=== PATIENT | female | born 1965 | race African-American/Black ===

== ENCOUNTER 2016-06-27 18:12 | Emergency (ER) | payer BC, OTHER ==
[~2016-06-27] VITALS: Ht 152.4 cm; Wt 90.5 kg
[2016-06-27 18:14] VITALS: BP 157/84; PULSE 105; RESP 20; TEMP 98.1; O2SAT 98
[2016-06-27] MEDS ORDERED: COLC1TAB7 PO (18:42)
[2016-06-27] MEDS ORDERED: INDO25CA PO (18:42)
--- NOTE | 2016-06-27 18:43 | PD ---
HPI Chief Complaint: Injury Time Seen by Provider: 18:36 Travel History International Travel<30 days: No Contact w/Intl Traveler<30days: No Traveled to known affect area: No History of Present Illness HPI Patient is a 51-year-old female presenting to emergency for evaluation of right ankle swelling. Patient denies any injury or trauma. She states it happened fairly abruptly on Sunday while she was at work. She states it feels warm to the touch. She denies any fevers, chills, nausea, vomiting, chest pain, shortness of breath. She reports pain as sore and a 4-5 out of 10. PFSH Past Medical History Diminished Hearing: No GERD: Yes Hypertension: Yes Tetanus Vaccination: < 5 Years ?: Not Past Surgical History Surgical History: No Previous Surgery Social History Alcohol Use: No Tobacco Use: No (QUIT 2012) Substance Use: No Allergies-Medications (Allergen,Severity, Reaction): Coded Allergies: No Known Allergies (Verified , 06/27/16) Reported Meds & Prescriptions Reported Meds & Active Scripts Active No Active Prescriptions or Reported Medications Review of Systems Except as stated in HPI: all other systems reviewed are Neg Musculoskeletal: Positive: Myalgias, Edema Skin: Positive Change in Pigmentation Physical Exam Narrative GENERAL: Well-nourished, well-developed patient. SKIN: Warm and dry. HEAD: Normocephalic. EYES: No scleral icterus. No injection or drainage. NECK: Supple, trachea midline. No JVD or lymphadenopathy. CARDIOVASCULAR: Regular rate and rhythm without murmurs, gallops, or rubs. RESPIRATORY: Breath sounds equal bilaterally. No accessory muscle use. GASTROINTESTINAL: Abdomen soft, non-tender, nondistended. MUSCULOSKELETAL: No cyanosis, mild erythema and edema to lateral aspect of right ankle, mildly tender to palpation. Full range of motion in right ankle and toes. Positive pedal pulses, brisk less than 3 second capillary refill. BACK: Nontender without obvious deformity. No CVA tenderness. Data Data Last Documented VS Vital Signs Date Time Temp Pulse Resp B/P Pulse Ox O2 Delivery O2 Flow Rate FiO2 06/27/16 18:14 98.1 105 20 157/84 98 Room Air MDM Medical Decision Making Medical Screen Exam Complete: Yes Emergency Medical Condition: Yes Interpretation(s) Vital Signs Date Time Temp Pulse Resp B/P Pulse Ox O2 Delivery O2 Flow Rate FiO2 06/27/16 18:14 98.1 105 20 157/84 98 Room Air Differential Diagnosis Fracture versus sprain versus strain versus cellulitis versus gout versus other Narrative Course Patient is a 51-year-old female presenting to emergency department for evaluation of right ankle pain and swelling that started Sunday spontaneously without any injury or trauma. Physical examination appears most consistent with gout. Patient refused imaging. Patient will be provided with a prescription for Colcrys as well as indomethacin. She is advised to return to emergency department immediately for any new or worsening symptoms or if symptoms do not improve within 24-48 hours. She was advised to return sooner if the redness or swelling worsen despite therapy. Patient verbalizes understanding of these instructions. She was also advised to follow-up with her primary doctor. Patient is stable for discharge. Diagnosis Primary Impression: Gout of ankle Qualified Code: M10.9 - Gout of right ankle, unspecified cause, unspecified chronicity Referrals: Primary Care Physician Patient Instructions: General Instructions, Gout (DC), Low Purine Diet (ED) Departure Forms: Tests/Procedures, Work Release Enter return to work date: Jun 29, 2016 Additional Instructions: Follow-up with a primary care doctor Monitor blood pressure at home Return to emergency department for any new or worsening symptoms Take medications as directed Rest, ice, elevate extremity Increased fluid intake Med/Other Pt SpecificInfo: Prescription(s) given Scripts Colchicine (Colcrys)0.6 Mg Tab0.6 Mg PO DAILY #3 TAB Ref 0 Take 2 tablets by mouth times one dose, then 1 hour later take the third tablet. Prov:Jackie Hylton 06/27/16 Indomethacin 25 Mg Cap25 Mg PO TID 7 Days Ref 0 Take with food, milk, or antacids to decrease stomach adverse effects. Prov:Jackie Hylton 06/27/16 Disposition: 01 DISCHARGE HOME Condition: Stable Jackie Hylton Jun 27, 2016 18:43
== END 2016-06-27 18:57 | disposition home or self-care (01) ==
LOC: NEPB 18:12
DX: M10.9 Gout, unspecified (principal)
CPT/HCPCS: 99283

== ENCOUNTER 2016-08-31 10:01 | Emergency (ER) | payer BC ==
[~2016-08-31] VITALS: Ht 152.4 cm; Wt 90.0 kg
[~2016-08-31 10:01] MED LIST: COLC1TAB7 PO; INDO25CA PO
[2016-08-31 10:02] VITALS: BP 174/93; PULSE 78; RESP 20; TEMP 98; O2SAT 95
[2016-08-31 10:07] VITALS: BP 170/87; PULSE 83; RESP 17; O2SAT 98
[2016-08-31] MEDS ORDERED: OMEP10CA PO (10:14)
[2016-08-31] MEDS ORDERED: blood pressure PO (10:14)
[2016-08-31] MEDS ORDERED: ASPIRIN 325 MG TAB PO ONE (10:30)
[2016-08-31] MEDS ORDERED: SODIUM CHLORIDE 0.9% FLUSH 10 ML FLUSH IVF PRN (10:30)
--- NOTE | 2016-08-31 10:38 | PD ---
HPI Chief Complaint: Cardiac Complaint Time Seen by Provider: 10:22 Travel History International Travel<30 days: No Contact w/Intl Traveler<30days: No Traveled to known affect area: No History of Present Illness HPI This patient complains of chest pain. She had a 10 minute spell of central sternal pain and pressure this morning at 6 AM. Symptoms were not exertionally induced. They resolve spontaneously with no alleviating factors. She is currently chest pain-free. Denies history of cardiac disease or prior stress testing. She is a hypertensive smoker. Symptoms severity was moderate but now is absent. PFSH Past Medical History Cardiovascular Problems: Yes (htn) Diminished Hearing: No GERD: Yes Gout: Yes Hypertension: Yes Immunizations Current: No Influenza Vaccination: No ?: Not Past Surgical History Surgical History: No Previous Surgery Social History Alcohol Use: No Tobacco Use: Yes Substance Use: No Allergies-Medications (Allergen,Severity, Reaction): Coded Allergies: No Known Allergies (Verified , 08/31/16) Reported Meds & Prescriptions Reported Meds & Active Scripts Active Reported Omeprazole 10 Mg Cap 20 Mg PO DAILY [blood pressure] 1 Tab PO DAILY Review of Systems General / Constitutional: No: Fever Eyes: No: Visual changes HENT: No: Headaches Cardiovascular: Positive: Chest Pain or Discomfort Respiratory: No: Shortness of Breath Gastrointestinal: No: Abdominal Pain Genitourinary: No: Dysuria Musculoskeletal: No: Pain Skin: No Rash Neurologic: No: Weakness Psychiatric: No: Depression Endocrine: No: Polydipsia Hematologic/Lymphatic: No: Easy Bruising Physical Exam Narrative GENERAL: Well-nourished, well-developed patient in no apparent distress. SKIN: Focused skin assessment reveals no rash and nodules. Skin is Warm and dry. HEAD: Atraumatic. Normocephalic. EYES: Pupils equal and round. No scleral icterus. No injection or drainage. ENT: No nasal bleeding or discharge. Mucous membranes pink and moist. NECK: Trachea midline. No JVD. CARDIOVASCULAR: Regular rate and rhythm. No murmur appreciated. RESPIRATORY: No accessory muscle use. Clear to auscultation. Breath sounds equal bilaterally. GASTROINTESTINAL: Abdomen soft, non-tender, nondistended. Hepatic and splenic margins not palpable. MUSCULOSKELETAL: No obvious deformities. No clubbing. No cyanosis. No edema. NEUROLOGICAL: Awake and alert. No obvious cranial nerve deficits. Motor grossly within normal limits. Normal speech. PSYCHIATRIC: Appropriate mood and affect; insight and judgment normal. Data Data Last Documented VS Vital Signs Date Time Temp Pulse Resp B/P Pulse Ox O2 Delivery O2 Flow Rate FiO2 08/31/16 11:55 75 18 161/86 95 Room Air 08/31/16 10:02 98.0 Orders Electrocardiogram (08/31/16 10:30) Basic Metabolic Panel (Bmp) (08/31/16 10:30) Ckmb (Isoenzyme) Profile (08/31/16 10:30) Complete Blood Count With Diff (08/31/16 10:30) Prothrombin Time / Inr (Pt) (08/31/16 10:30) Act Partial Throm Time (Ptt) (08/31/16 10:30) Troponin I (08/31/16 10:30) Chest, Single Ap (08/31/16 10:30) Ecg Monitoring (08/31/16 10:30) Iv Access Insert/Monitor (08/31/16 10:30) Oximetry (08/31/16 10:30) Aspirin (Aspirin) (08/31/16 10:30) Sodium Chloride 0.9% Flush (Ns Flush) (08/31/16 10:30) Labs Laboratory Tests Test 08/31/16 10:25 White Blood Count 10.5 TH/MM3 Red Blood Count 4.94 MIL/MM3 Hemoglobin 14.1 GM/DL Hematocrit 43.7 % Mean Corpuscular Volume 88.5 FL Mean Corpuscular Hemoglobin 28.6 PG Mean Corpuscular Hemoglobin 32.3 % Concent Red Cell Distribution Width 15.2 % Platelet Count 343 TH/MM3 Mean Platelet Volume 7.7 FL Neutrophils (%) (Auto) 69.5 % Lymphocytes (%) (Auto) 23.2 % Monocytes (%) (Auto) 5.6 % Eosinophils (%) (Auto) 1.4 % Basophils (%) (Auto) 0.3 % Neutrophils # (Auto) 7.3 TH/MM3 Lymphocytes # (Auto) 2.4 TH/MM3 Monocytes # (Auto) 0.6 TH/MM3 Eosinophils # (Auto) 0.1 TH/MM3 Basophils # (Auto) 0.0 TH/MM3 CBC Comment DIFF FINAL Differential Comment Prothrombin Time 10.5 SEC Prothromb Time International 1.0 RATIO Ratio Activated Partial 27.8 SEC Thromboplast Time Sodium Level 140 MEQ/L Potassium Level 4.1 MEQ/L Chloride Level 106 MEQ/L Carbon Dioxide Level 26.9 MEQ/L Anion Gap 7 MEQ/L Blood Urea Nitrogen 9 MG/DL Creatinine 0.76 MG/DL Estimat Glomerular Filtration 97 ML/MIN Rate Random Glucose 91 MG/DL Calcium Level 9.0 MG/DL Total Creatine Kinase 69 U/L Troponin I LESS THAN 0.02 NG/ML MDM Medical Decision Making Medical Screen Exam Complete: Yes Emergency Medical Condition: Yes Medical Record Reviewed: Yes Differential Diagnosis Differential diagnosis includes HI, angina, pericarditis, pleurisy, GERD, anxiety. Narrative Course I have reviewed the patient's electronic medical record. No prior stress testing here. IV placed I reviewed the EKG shows sinus rhythm with no ST elevation I reviewed the chest x-ray which is normal Extended cardiac monitoring shows sinus rhythm without ectopy CBC is normal Metabolic profile is normal CK is normal Troponin is normal Coagulation studies are normal Recommended telemetry observation in the chest pain center to rule out cardiac cause of her symptoms. Explained the rationale and risks including cardiac arrhythmia and myocardial damage and as well as potential benefits. She is going to decline and will sign out AGAINST MEDICAL ADVICE. I've advised her to return if she worsens or changes her mind. Diagnosis Primary Impression: Chest pain in adult Additional Impressions: Hypertension Qualified Code: I10 - Essential hypertension Smoker Disposition: 07 AGAINST MEDICAL ADVICE Yoel Francisco MD August 31, 2016 10:38
[2016-08-31 10:49] LABS: AUTOMATED NEUTROPHIL # 7.3 TH/MM3 (1.8-7.7); BASOPHIL % 0.3 % (0.0-2.0); EOSINOPHIL # 0.1 TH/MM3 (0-0.4); EOSINOPHIL % 1.4 % (0.0-4.0); HEMATOCRIT 43.7 % (35.0-46.0); HEMO FLAGS DIFF FINAL; LYMPH % 23.2 % (9.0-44.0); LYMPHOCYTE # 2.4 TH/MM3 (1.0-4.8); MEAN CELL VOLUME 88.5 FL (80.0-100.0); MEAN CORPUSCULAR HEMOGLOBIN 28.6 PG (27.0-34.0); MEAN CORPUSCULAR HGB CONC 32.3 % (32.0-36.0); MONO % 5.6 % (0.0-8.0); NEUT % 69.5 % (16.0-70.0); PLATELET COUNT 343 TH/MM3 (150-450); RED BLOOD COUNT 4.94 MIL/MM3 (4.00-5.30); RED CELL DISTRIBUTION WIDTH 15.2 % (11.6-17.2); WHITE BLOOD COUNT 10.5 TH/MM3 (4.0-11.0)
--- NOTE | 2016-08-31 11:02 | RADRPT ---
EXAM DATE/TIME: 08/31/2016 10:33 [facility] COMPARISON: No previous studies available for comparison. INDICATIONS : Evaluate lung status. Chest pain. MEDICAL HISTORY : None. SURGICAL HISTORY : None. ENCOUNTER: Initial ACUITY: 1 day PAIN SCORE: 6/10 LOCATION: Bilateral chest FINDINGS: A single view of the chest demonstrates the lungs to be symmetrically aerated without evidence of mas s, infiltrate or effusion. The cardiomediastinal contours are unremarkable. Osseous structures are intact. CONCLUSION: No acute disease. Elder Brooks MD on August 31, 2016 at 10:54 Board Certified Radiologist. This report was verified electronically.
[2016-08-31 11:03] VITALS: O2SAT 98
[2016-08-31 11:08] LABS: PROTHROMBIN TIME - PATIENT 10.5 SEC (9.8-11.6)
[2016-08-31 11:09] LABS: ANION GAP 7 MEQ/L (5-15); APTT (PATIENT) 27.8 SEC (24.3-30.1); BICARBONATE 26.9 MEQ/L (21.0-32.0); BLOOD UREA NITROGEN 9 MG/DL (7-18); CHLORIDE 106 MEQ/L (98-107); GLOMERULAR FILTRATION RATE 97 ML/MIN (>89); POTASSIUM 4.1 MEQ/L (3.5-5.1); SODIUM (NA) 140 MEQ/L (136-145)
[2016-08-31 11:22] LABS: CREATINE KINASE 69 U/L (26-192)
[2016-08-31 11:55] VITALS: BP 161/86; PULSE 75; RESP 18; O2SAT 95
--- NOTE | 2016-08-31 16:34 | EKG ---
Date Performed: 08/31/2016 Time Performed: 10:15:13 PTAGE: 51 years EKG: Sinus rhythm NORMAL ECG PREVIOUS TRACING : 01/08/2013 07.47 Compared to the previous tracing, previously sinus tachycar jes DOCTOR: Kenneth White Interpretating Date/Time 08/31/2016 16:33:15
== END 2016-08-31 12:59 | disposition left against medical advice (07) ==
LOC: NEPC 10:01
DX: R07.9 Chest pain, unspecified (principal); I10 Essential (primary) hypertension; F17.200 Nicotine dependence, unspecified, uncomplicated; Z87.19 Personal history of other diseases of the digestive system; Z87.39 Personal history of other diseases of the musculoskeletal system and connective tissue; Z53.29 Procedure and treatment not carried out because of patient's decision for other reasons
CPT/HCPCS: 71010; 80048; 82550; 84484; 85025; 85610; 85730; 93005; 99285

== ENCOUNTER 2016-12-11 20:17 | Emergency (ER) | payer BC ==
[~2016-12-11] VITALS: Ht 152.4 cm; Wt 90.5 kg
[~2016-12-11 20:17] MED LIST changes: -COLC1TAB7 PO; -INDO25CA PO; +OMEP10CA PO; +blood pressure PO
[2016-12-11 20:18] VITALS: BP 179/89; PULSE 88; RESP 16; TEMP 98.5; O2SAT 96
--- NOTE | 2016-12-11 20:47 | PD ---
HPI Chief Complaint: Abdominal Pain Time Seen by Provider: 20:31 Travel History International Travel<30 days: No Contact w/Intl Traveler<30days: No Traveled to known affect area: No History of Present Illness HPI This is a 51 year old female who presents to the emergency department with pain in her back, 8/10, 3 days, constant, worse when she lays on her side. She also reports some hot and cold flashes. The pain radiates to her lower back to her axillary area. PFSH Past Medical History Narrative Medical gerd htn Cardiovascular Problems: Yes (HTN) Diminished Hearing: No GERD: Yes Gout: Yes Hypertension: Yes Immunizations Current: No Tetanus Vaccination: < 5 Years Influenza Vaccination: No ?: Not Past Surgical History Surgical History: No Previous Surgery Social History Alcohol Use: Yes (rarely) Tobacco Use: Yes (1PPD) Substance Use: Yes (Marijuana) Allergies-Medications (Allergen,Severity, Reaction): Coded Allergies: No Known Allergies (Verified , 12/11/16) Reported Meds & Prescriptions Reported Meds & Active Scripts Active Reported Omeprazole 10 Mg Cap 20 Mg PO DAILY [blood pressure] 1 Tab PO DAILY Review of Systems Except as stated in HPI: all other systems reviewed are Neg Physical Exam Narrative GENERAL:Well appearing, no acute distress SKIN: Focused skin assessment warm and dry. HEAD: Atraumatic. Normocephalic. EYES: Pupils equal and round. No injection or drainage. ENT: Moist mucous membranes NECK: Trachea midline. CARDIOVASCULAR: Regular rate and rhythm. No murmur appreciated. RESPIRATORY: Clear to auscultation. Breath sounds equal bilaterally. GASTROINTESTINAL: Abdomen soft, non-tender, nondistended. MUSCULOSKELETAL:Tender to palpation along the left lumbar paraspinal muscles NEUROLOGICAL: Awake and alert. No obvious cranial nerve deficits. Moving all extremities PSYCHIATRIC: Appropriate mood and affect; insight and judgment normal. Data Data Last Documented VS Vital Signs Date Time Temp Pulse Resp B/P (MAP) Pulse Ox O2 Delivery O2 Flow Rate FiO2 12/11/16 21:26 84 16 180/74 (109) 95 Room Air 12/11/16 20:18 98.5 Orders Orders Spine, Lumbar - Ltd (Ap & Lat) (12/11/16 ) Orphenadrine Inj (Norflex Inj) (12/11/16 21:00) Ketorolac Inj (Toradol Inj) (12/11/16 21:00) [facility] Medical Decision Making Medical Screen Exam Complete: Yes Emergency Medical Condition: Yes Interpretation(s) Last 24 hours Impressions Lumbar Spine X-Ray 12/11/16 0000 Signed Impressions: Service Date/Time: Sunday, December 11, 2016 21:19 - CONCLUSION: 1. Mild degenerative disc change. Christo Traore MD Differential Diagnosis Compression fracture, herniated disc, degenerative disc disease, nephrolithiasis , pyelonephritis Narrative Course This is a 51-year-old female who presents to the emergency department with low back pain. On exam it seems purely musculoskeletal and is elicited with movement, sitting up and twisting side to side. She is focally tender in the lower lumbar paraspinal muscles. She denies any history of IV drug use. She denies any weakness, or bowel or bladder dysfunction. I suspect she has musculoskeletal back pain and she was given anti-inflammatories and a muscle relaxer and her pain improved. I think the patient can be discharged home with continued symptomatic control. She was told to follow-up with her primary care physician in a week and to consider physical therapy if she is not improving. X -ray was negative for compression fracture or malignancy. Diagnosis Primary Impression: Musculoskeletal back pain Patient Instructions: General Instructions Additional Instructions: If you develop weakness of your legs, difficulty walking, numbness of your legs or your genital or rectal area, loss of your bowel or bladder, or difficulty urinating return to the emergency department immediately. Followup with your primary care physician in one week if your symptoms have not improved. Med/Other Pt SpecificInfo: Prescription(s) given Scripts Cyclobenzaprine (Flexeril) 10 Mg Tab 10 MG PO TID for Muscle Spasm, #15 TAB 0 Refills Prov: Nicolle Johnson MD 12/11/16 Naproxen (Naproxen) 500 Mg Tab 500 MG PO BID Y for PAIN SCALE 4 TO 10, #20 TAB 0 Refills Prov: Nicolle Johnson MD 12/11/16 Disposition: 01 DISCHARGE HOME Condition: Stable Nicolle Johnson MD Dec 11, 2016 20:47
[2016-12-11] MEDS ORDERED: ORPHENADRINE INJ 60 MG/2 ML AMP IM ONE (21:00)
[2016-12-11] MEDS ORDERED: KETOROLAC TROMETHAMINE 60 MG/2 ML (IM) VIAL IM ONE (21:00)
[2016-12-11 21:26] VITALS: BP 180/74; PULSE 84; RESP 16; O2SAT 95
--- NOTE | 2016-12-11 21:35 | RADRPT ---
EXAM DATE/TIME: 12/11/2016 21:19 [facility] COMPARISON: No previous studies available for comparison. INDICATIONS : Lower lumbar pain, no trauma MEDICAL HISTORY : None. SURGICAL HISTORY : None. ENCOUNTER: Initial ACUITY: 1 day PAIN SCORE: 8/10 LOCATION: Left Lspine FINDINGS: AP and lateral views of the lumbar spine were obtained and demonstrate no acute fracture or malalignm ent. Mild degenerative disc changes. The sacrum is intact. CONCLUSION: 1. Mild degenerative disc change. Christo Traore MD on December 11, 2016 at 21:33 Board Certified Radiologist. This report was verified electronically.
[2016-12-11] MEDS ORDERED: NAPR500T PO (21:54)
[2016-12-11] MEDS ORDERED: CYCL1TAB29 PO (21:54)
== END 2016-12-11 22:48 | disposition home or self-care (01) ==
LOC: NEPD 20:17
DX: M54.5 Low back pain (principal); F17.200 Nicotine dependence, unspecified, uncomplicated
CPT/HCPCS: 72100; 96372; 99284; J1885; J2360

== ENCOUNTER 2017-03-14 10:22 | Emergency (ER) | payer SELFPAY ==
[~2017-03-14] VITALS: Ht 152.4 cm; Wt 92.0 kg
[~2017-03-14 10:22] MED LIST changes: +CYCL10TA PO; +NAPR500T2 PO
[2017-03-14 10:24] VITALS: BP 179/98; PULSE 83; RESP 14; TEMP 98.3; O2SAT 98
[2017-03-14] MEDS ORDERED: IBUP1TAB7 PO ×2 (11:41→12:02)
--- NOTE | 2017-03-14 11:53 | PD ---
HPI Chief Complaint: Injury Time Seen by Provider: 11:28 Travel History International Travel<30 days: No Contact w/Intl Traveler<30days: No Traveled to known affect area: No History of Present Illness HPI 51-year-old female presents to the emergency room for evaluation of several injuries that occurred at work earlier today. Patient works at the [employer]. While walking through large sliding gaits, the person responsible for opening and closing the gate closed on the patient. States she was pinned between the gate and the wall. The gate hit her left axillary region and she was pushed up against a metal bar on the wall on her right shoulder and right side. States she has had intermittent paresthesias in the right upper extremity since then especially with certain range of motion of the she pushes on certain areas of her back. She denies any neck injury or trauma. Also reports focal tenderness to the lateral aspect of her thigh about 27 years in diameter. Pain is worsened when she pushes on it. Patient has been ambulatory since onset. She has not taken anything for symptoms. Only reports history of hypertension. PFSH Past Medical History Cardiovascular Problems: Yes (HTN) Diminished Hearing: No GERD: Yes Gout: Yes Hypertension: Yes Immunizations Current: No ?: Not Social History Alcohol Use: Yes (rarely) Tobacco Use: Yes (1PPD) Substance Use: Yes (Marijuana) Allergies-Medications (Allergen,Severity, Reaction): Coded Allergies: No Known Allergies (Verified , 12/11/16) Reported Meds & Prescriptions Reported Meds & Active Scripts Active Ibuprofen 800 Mg Tab 800 Mg PO Q8H PRN Reported Omeprazole 10 Mg Cap 20 Mg PO DAILY Review of Systems Except as stated in HPI: all other systems reviewed are Neg Physical Exam Narrative GENERAL: Well-nourished, well-developed female in no acute distress. Afebrile. Ambulatory. SKIN: Focused skin assessment warm/dry. No erythema or ecchymosis. HEAD: Normocephalic. EYES: No scleral icterus. No injection or drainage. NECK: Supple, trachea midline. No JVD or lymphadenopathy. No midline tenderness. Full range of motion. CARDIOVASCULAR: Regular rate and rhythm without murmurs, gallops, or rubs. RESPIRATORY: Breath sounds equal bilaterally. No accessory muscle use. MUSCULOSKELETAL: No cyanosis, or edema. Full range of motion of right upper and lower extremities without pain. 2+ radial pulse on the right. Radial, ulnar, and median nerves intact in the right. Mild tenderness to palpation of the left axillary region and right scapular region. Focal tenderness to palpation to the right distal, lateral thigh in about a 2 cm area. No obvious hematoma or edema. Data Data Last Documented VS Vital Signs Date Time Temp Pulse Resp B/P (MAP) Pulse Ox O2 Delivery O2 Flow Rate FiO2 03/14/17 10:24 98.3 83 14 179/98 (125) 98 MDM Medical Decision Making Medical Screen Exam Complete: Yes Emergency Medical Condition: Yes Medical Record Reviewed: Yes Differential Diagnosis Muscle strain, contusion, fracture, hematoma Narrative Course 51-year-old female presents to the emergency room for evaluation of left axillary pain, right shoulder pain and paresthesias, and right thigh pain after injury at work earlier today. Patient was pinned between an electronic penitentiary gate and a wall. The gait struck her on the left axillary region. The wall pushed against her right shoulder and right side. Patient is ambulatory without difficulty. She has full range of motion of bilateral upper and lower extremities. Right arm is neurovascularly intact with 2+ radial pulse. Radial , ulnar, and median nerves intact. Strength 5/5 and equal in upper and lower extremities. No pronator drift. I suspect right arm contusion/muscle strain affecting the nerves in the shoulder. She has no cervical spine tenderness and full range of motion of the neck so it is unlikely radiculopathy. She does have some tenderness to palpation of the scapular region on the right. No erythema or ecchymosis. She also has tenderness to palpation of the soft tissue in her left axilla and right lateral, distal thigh. Patient was informed that soft tissue injury will not show up on x-rays and there are no indications for x-ray at this time. Told to follow up for outpatient MRI if symptoms persist in the shoulder. She will be discharged with prescription for ibuprofen and told to return for worsening symptoms. She understands and agrees to plan. Diagnosis Primary Impression: Paresthesia of right arm Additional Impression: Contusion of right leg Qualified Codes: S80.11XA - Contusion of right lower leg, initial encounter Referrals: Primary Care Physician Additional Instructions: Take ibuprofen with food as directed, as needed for pain. Apply ice to the affected area for 20 minutes at a time, as needed for pain and swelling. Follow-up with a primary care physician. Return to the emergency room for worsening symptoms. Med/Other Pt SpecificInfo: Prescription(s) given Scripts Ibuprofen (Ibuprofen) 800 Mg Tab 800 MG PO Q8H Y for Pain/Inflammation, #15 TAB 0 Refills Prov: Augustus Whitehead MD 03/14/17 Disposition: 01 DISCHARGE HOME Condition: Stable Summer Means Mar 14, 2017 11:53
== END 2017-03-14 12:19 | disposition home or self-care (01) ==
LOC: NEPK 10:22
DX: R20.2 Paresthesia of skin (principal); S80.11XA Contusion of right lower leg, initial encounter; M25.511 Pain in right shoulder; W23.0XXA Caught, crushed, jammed, or pinched between moving objects, initial encounter; Y93.01 Activity, walking, marching and hiking; Y92.89 Other specified places as the place of occurrence of the external cause; Y99.0 Civilian activity done for income or pay
CPT/HCPCS: 99283

== ENCOUNTER 2017-06-22 03:50 | Emergency (ER) | payer BC ==
[~2017-06-22] VITALS: Ht 152.4 cm; Wt 75.0 kg
[~2017-06-22 03:50] MED LIST changes: -CYCL10TA PO; +IBUP1TAB7 PO; -NAPR500T2 PO; -blood pressure PO
[2017-06-22 04:00] VITALS: BP 165/88; PULSE 83; RESP 20; TEMP 98.3; O2SAT 95
[2017-06-22 05:35] VITALS: BP 143/89; PULSE 67; RESP 18; O2SAT 96
--- NOTE | 2017-06-22 05:58 | PD ---
HPI Chief Complaint: Hypertension Time Seen by Provider: 05:41 Travel History International Travel<30 days: No Contact w/Intl Traveler<30days: No Traveled to known affect area: No History of Present Illness HPI Physical is a 52-year-old female arrives complaining of high blood pressure. It was 180/90 at her work, [facility] [employer]. She was therefore sent home. She reports noncompliance with her antihypertensive however, cannot remember the name of it. She goes on to explain feeling slightly dizzy at the time her blood pressure was high however it resolved spontaneously shortly thereafter. Upon arrival here the blood pressure was found to be 150/80 and the patient was asymptomatic. She reports she has a primary care provider in [facility] and will follow therefore a refill of antihypertensive. [facility] Past Medical History Cardiovascular Problems: Yes (HTN) Diminished Hearing: No GERD: Yes Gout: Yes Hypertension: Yes Immunizations Current: No Tetanus Vaccination: < 5 Years ?: Not Past Surgical History Surgical History: No Previous Surgery Social History Alcohol Use: Yes (rarely) Tobacco Use: Yes (1PPD) Substance Use: Yes (Marijuana) Allergies-Medications (Allergen,Severity, Reaction): Coded Allergies: No Known Allergies (Verified , 12/11/16) Reported Meds & Prescriptions Reported Meds & Active Scripts Active Review of Systems Except as stated in HPI: all other systems reviewed are Neg General / Constitutional: No: Fever Physical Exam Narrative GENERAL: 52-year-old female pleasant well-nourished well-developed no acute distress Vital Signs Date Time Temp Pulse Resp B/P (MAP) Pulse Ox O2 Delivery O2 Flow Rate FiO2 06/22/17 05:35 67 18 143/89 (107) 96 06/22/17 04:00 98.3 83 20 165/88 (113) 95 SKIN: Warm and dry. HEAD: Atraumatic. Normocephalic. EYES: Pupils equal and round. No scleral icterus. No injection or drainage. ENT: No nasal bleeding or discharge. Mucous membranes pink and moist. NECK: Trachea midline. No JVD. CARDIOVASCULAR: Regular rate and rhythm. RESPIRATORY: No accessory muscle use. Clear to auscultation. Breath sounds equal bilaterally. GASTROINTESTINAL: Abdomen soft, non-tender, nondistended. Hepatic and splenic margins not palpable. MUSCULOSKELETAL: Extremities without clubbing, cyanosis, or edema. No obvious deformities. NEUROLOGICAL: Awake and alert. No obvious cranial nerve deficits. Motor grossly within normal limits. Five out of 5 muscle strength in the arms and legs. Normal speech. PSYCHIATRIC: Appropriate mood and affect; insight and judgment normal. Data Data Last Documented VS Vital Signs Date Time Temp Pulse Resp B/P (MAP) Pulse Ox O2 Delivery O2 Flow Rate FiO2 06/22/17 05:35 67 18 143/89 (107) 96 06/22/17 04:00 98.3 MDM Medical Decision Making Medical Screen Exam Complete: Yes Emergency Medical Condition: Yes Medical Record Reviewed: Yes Differential Diagnosis Hypertension, medication refill, medication noncompliance Narrative Course Patient is asymptomatic now and has a blood pressure within acceptable range for discharge. Diagnosis Primary Impression: Hypertension Qualified Codes: I10 - Essential (primary) hypertension Med/Other Pt SpecificInfo: No Change to Meds Disposition: 01 DISCHARGE HOME Condition: Stable Vic White MD Jun 22, 2017 05:58
== END 2017-06-22 06:36 | disposition home or self-care (01) ==
LOC: NEPC 03:50
DX: I10 Essential (primary) hypertension (principal); F17.200 Nicotine dependence, unspecified, uncomplicated; F12.90 Cannabis use, unspecified, uncomplicated
CPT/HCPCS: 99281